=== PATIENT | male | born 1980 | race Caucasian/White ===

== ENCOUNTER 2016-12-11 09:31 | Emergency (ER) | payer BC ==
[2016-12-11 09:38] VITALS: BP 114/62
[2016-12-11] MEDS ORDERED: Tetracaine 0.5% 2 ML Bottle EYELF ONE (09:48)
--- NOTE | 2016-12-11 09:48 | EDM.PDOC ---
ED HPI EYE COMPLAINT - General Chief Complaint: Eye Problems Stated Complaint: SOMETHING IN EYE Time Seen by Provider: 12/11/16 09:32 Source: Reports: Patient, RN, RN notes reviewed History Limitations: Reports: No limitations - History of Present Illness INITIAL COMMENTS - FREE TEXT/NARRATIVE: Patient presents to the ED at [facility] complaining of left eye irritation. Patient states he was working with metal yesterday and thinks he may have gotten a metal shaving into his left eye. Denies eye pain. He feels irritation with blinking. No eye drainage. No previous eye problems. Symptom Onset Date: 12/10/16 Symptom Onset Time: 14:00 Timing/Duration: Reports: Waxing/waning Location: left eye Quality: Reports: Other Severity: mild Context: Reports: projectile Associated Symptoms (Eye): Reports: FB sensation. Denies: pain, decreased/ blurred, vision, double vision, sensitivity to light - Related Data Allergies/ADRs: Allergies No Known Allergies Allergy (Verified 12/11/16 09:43) Home Meds: Ambulatory Orders Medication Instructions Recorded Confirmed Venlafaxine [Effexor XR 24 Hr] 75 mg PO DAILY 07/18/16 12/11/16 Past Medical History HEENT History: Reports: None Cardiovascular History: Reports: None Respiratory History: Reports: Bronchitis, recurrent Gastrointestinal History: Reports: Colon polyp Genitourinary History: Reports: None Musculoskeletal History: Reports: Back pain, chronic Neurological History: Reports: None Psychiatric History: Reports: Anxiety Endocrine/Metabolic History: Reports: None Hematologic History: Reports: None Immunologic History: Reports: None Oncologic (Cancer) History: Reports: None Dermatologic History: Reports: None - Past Surgical History Head Surgeries/Procedures: Reports: None HEENT Surgical History: Reports: LASIK Cardiovascular Surgical History: Reports: None GI Surgical History: Reports: Colonoscopy Oncologic Surgical History: Reports: None Social & Family History - Tobacco Use Smoking Status *Q: Never Smoker - Alcohol Use Days Per Week of Alcohol Use: 0 Number of Drinks Per Day: 0 Total Drinks Per Week: 0 - Recreational Drug Use Recreational Drug Use: No Drug Use in Last 12 Months: No ED ROS GENERAL - Review of Systems Review Of Systems: See Below Constitutional: Denies: fever, chills, weakness HEENT: Reports: Other (FB left eye). Denies: Eye pain Respiratory: Reports: No Symptoms. Denies: Shortness of Breath, Cough Cardiovascular: Reports: No symptoms. Denies: Chest pain, Palpitations Skin: Reports: no symptoms Neurological: Reports: No Symptoms ED EXAM GENERAL W FULL EYE - Physical Exam Exam: See Below Exam Limited By: No limitations General Appearance: alert, no apparent distress Eye Exam: left eye: foreign body, bilateral eye: EOMI, PERRL Eyelids: bilateral: normal appearance Conjunctiva & Sclera: bilateral: normal appearance Cornea Exam: left: foreign body Extraocular Movements: bilateral: intact Pupils: normal accommodation Pupillary Size: bilateral: 3 mm Pupillary Reaction: bilateral: brisk Respiratory/Chest: no respiratory distress, lungs clear, normal breath sounds Cardiovascular: regular rate, rhythm Neurological: alert, oriented Skin Exam: Warm, Dry, Intact, Normal color, No rash ED EYE w/ Add Procedure - Eye Procedure Alcaine Drops Administered: Yes Eye FB Removal: removal w/ needle Eye Irrigated w/ Saline (ccs): 10 Antibiotic Oinment/Drps Admin: left eye Course - Vital Signs Last Recorded V/S: Last Vital Signs Temp 35.8 C 12/11/16 09:34 Pulse 74 12/11/16 09:34 Resp 12 12/11/16 09:34 BP 114/62 12/11/16 09:34 Pulse Ox 97 12/11/16 09:34 - Orders/Labs/Meds Meds: Medications Discontinued Medications Generic Name Dose Route Start Last Admin Trade Name Elvira PRN Reason Stop Dose Admin Gentamicin Sulfate 1 packet 12/11/16 09:49 Take Home: Gentamicin 0.3% Ophth Soln, 1 Jered EYEBOTH 12/11/16 09:50 ONETIME ONE Tetracaine 1 ml 12/11/16 09:48 Pontocaine 0.5% Ophth Drops EYELF 12/11/16 09:49 ONETIME ONE Departure - Departure Time of Disposition: 10:07 Disposition: Home, Self-Care 01 Condition: good Clinical Impression: Corneal foreign body Qualifiers: Encounter type: initial encounter Laterality: left Qualified Code(s): T15.02XA - Foreign body in cornea, left eye, initial encounter Instructions: Eye Foreign Body, [id number] Referrals: Roslyn Dunn PA-C [Primary Care Provider] - Forms: ED Department Discharge Additional Instructions: 1. Stay well hydrated and rest 2. Use eye drops for full coarse 3. Avoid rubbing or touching the eye 4. See your eye doctor as symptoms warrant - Problem List Review Problem List Initiated/Reviewed/Updated: Yes
[2016-12-11] MEDS ORDERED: Take Home: Gentamicin 0.3% Ophth Soln 5 ML, 1 Bottle Pack EYEBOTH ONE (09:49)
== END 2016-12-11 10:14 | disposition home or self-care (01) ==
LOC: VM.ED 09:31
DX: T15.02XA Foreign body in cornea, left eye, initial encounter (principal); F41.9 Anxiety disorder, unspecified
CPT/HCPCS: 65220; 99283; A9270

== ENCOUNTER 2017-08-09 18:34 | Emergency (ER) | payer OTHER, BC ==
[2017-08-09 18:46] VITALS: BP 135/82
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
== END 2017-08-09 19:50 | disposition home or self-care (01) ==
LOC: VM.ED 18:34
DX: S09.90XA Unspecified injury of head, initial encounter (principal); S13.4XXA Sprain of ligaments of cervical spine, initial encounter; Z79.899 Other long term (current) drug therapy; V43.52XA Car driver injured in collision with other type car in traffic accident, initial encounter
CPT/HCPCS: 70450; 72100; 72125; 99284